=== PATIENT | male | born 1950 | race Caucasian/White ===

== ENCOUNTER 2017-05-01 20:13 | Emergency (ER) | payer MEDICARE, OTHER ==
[~2017-05-01] VITALS: Ht 167.6 cm; Wt 80.5 kg
[2017-05-01 20:20] VITALS: Ht 167.6 cm; Wt 80.5 kg
--- NOTE | 2017-05-01 20:52 | ERD ---
ER Documentation Chief Complaint Date/Time DATE: 05/01/17 TIME: 20:50 Chief Complaint puncture wound to left 4th finger with nail around 12 pm HPI Patient is a 66-year-old male who states he actually shot himself in the left fourth digit with nail gun earlier today and the nail went through and through. He has mild to moderate throbbing pain. Denies any numbness or tingling. Denies any loss of range of motion. Denies any other injury. Unsure of last tetanus vaccination. ROS All systems reviewed and are negative except as per history of present illness. Medications Home Meds Active Scripts Cephalexin* (Keflex*) 500 Mg Capsule, 500 MG PO QID for 7 Days, CAP Prov:CARMEN FITZPATRICK PA-C 05/01/17 Ibuprofen* (Motrin*) 600 Mg Tab, 600 MG PO Q6, #30 TAB Prov:CARMEN FITZPATRICK PA-C 05/01/17 Allergies Allergies: Coded Allergies: No Known Drug Allergies (Verified Allergy, Unknown, 05/01/17) PMhx/Soc Medical and Surgical Hx: pt denies Medical Hx, pt denies Surgical Hx Hx Alcohol Use: No Hx Substance Use: No Hx Tobacco Use: No Smoking Status: Never smoker FmHx Family History: No diabetes Physical Exam Vitals Vital Signs Date Time Temp Pulse Resp B/P Pulse Ox O2 Delivery O2 Flow Rate FiO2 05/01/17 20:20 98.0 80 20 157/76 97 Physical Exam Const: [] Head: Atraumatic Eyes: Normal Conjunctiva ENT: Normal External Ears, Nose and Mouth. Neck: Full range of motion..~ No meningismus. Resp: Clear to auscultation bilaterally Cardio: Regular rate and rhythm, no murmurs Abd: Soft, non tender, non distended. Normal bowel sounds Skin: No petechiae or rashes Back: No midline or flank tenderness Ext: Left hand fourth digit has 2 puncture wounds one on the dorsal side and one on the medial side past the DIP joint, no active bleeding, no evidence of retained foreign body, full range of motion in the finger in both extension and flexion against resistance, no bony abnormalities, capillary refill less than 2 seconds, sensation to light touch is intact Results 24 hrs Current Medications Medications (Trade) Dose Ordered Sig/Mah[place] Route PRN Reason Start Time Stop Time Status Last Admin Dose Admin Ibuprofen (Motrin) 600 mg ONCE ONCE PO 7/28/17 21:00 05/01/17 21:01 DC 05/01/17 20:53 Diphtheria/ Tetanus/Acell Pertussis (Adacel) 0.5 ml ONCE ONCE IM* 05/01/17 21:00 05/01/17 21:01 DC 05/01/17 20:54 Lidocaine HCl (Lidocaine 1% (Mdv) 10 ml) 10 ml ONCE STAT INJ 05/01/17 23:08 05/01/17 23:09 DC Procedures/MDM 66-year-old male presents after puncture wound secondary to nail gun to his left fourth digit. He is neurovascularly intact. He was given a tetanus vaccination and Motrin for pain. X-ray was ordered. X-ray showed retained foreign body. His finger was cleaned with Betadine and normal saline in the digital block using 1% lidocaine was used for to anesthetize the finger and then I was able to remove the foreign body with clamps. Patient tolerated the procedure well and there were no complications. Wound was dressed and bandaged she was given a prescription for ibuprofen and Keflex. Recommended this patient follow up with her primary care doctor within 48 hours or return to the emergency room for any worsening of symptoms. However this time I do believe there is suitable for outpatient management. I answered all their questions and they agreed with the plan and were discharged home. Departure Diagnosis: Primary Impression: Foreign body (FB) in soft tissue Additional Impression: Puncture wound Condition: Stable CARMEN FITZPATRICK PA-C May 01, 2017 20:52
[2017-05-01] MEDS ORDERED: DIPHTH/TET/ACEL PERTUSS (ADULT) 0.5 ML VIAL IM* ONE (21:00)
[2017-05-01] MEDS ORDERED: IBUPROFEN 600 MG TAB PO ONE (21:00)
--- NOTE | 2017-05-01 23:00 | RADRPT ---
PROCEDURE: XR Hand. CLINICAL INDICATION: Pain. TECHNIQUE: Three views of the left hand. COMPARISON: None available. FINDINGS: There is a 6 mm linear metallic foreign body within the volar soft tissues of the proximal fourth fi nger. No fracture or dislocation is identified. The joint spaces are preserved. IMPRESSION: 1. No fracture or dislocation of the left hand. 2. 6 mm linear metallic foreign body within the volar soft tissues of the proximal fourth finger. RPTAT: HTAR .Yung Walker MD, Date Time Electronically viewed and signed by .Yung Walker MD, on 05/01/2017 23:00 .R/
[2017-05-01] MEDS ORDERED: LIDOCAINE 1% (MDV) 10 ML INJ INJ STA (23:08)
[2017-05-01] MEDS ORDERED: CEPH-443 PO (23:50)
[2017-05-01] MEDS ORDERED: IBUP-1542 PO (23:50)
[2017-05-01 23:55] VITALS: BP 138/69; PULSE 74; RESP 20
== END 2017-05-02 00:02 | disposition home or self-care (01) ==
LOC: FTE 20:13
DX: S61.245A Puncture wound with foreign body of left ring finger without damage to nail, initial encounter (principal); W29.4XXA Contact with nail gun, initial encounter; Y92.9 Unspecified place or not applicable; Z23 Encounter for immunization
CPT/HCPCS: 90471; 90715

== ENCOUNTER 2018-05-28 18:06 | Emergency (ER) | END 2018-05-28 21:51 | disposition home or self-care (01) ==

== ENCOUNTER 2018-07-18 14:57 | Emergency (ER) | END 2018-07-18 18:12 | disposition home or self-care (01) ==